=== PATIENT | female | born 1980 | race African-American/Black ===

== ENCOUNTER 2017-07-30 14:40 | Emergency (ER) | payer SELFPAY ==
[~2017-07-30] VITALS: Ht 170.2 cm; Wt 62.0 kg
[2017-07-30 14:42] VITALS: BP 129/70; PULSE 87; RESP 18; TEMP 98.9; O2SAT 100
--- NOTE | 2017-07-30 14:55 | PD ---
HPI Chief Complaint: Oral / Dental Pain or Problem Time Seen by Provider: 14:50 Travel History International Travel<30 days: No Contact w/Intl Traveler<30days: No Traveled to known affect area: No History of Present Illness HPI Patient is a 36-year-old female presents emergency department for evaluation of left-sided facial swelling. Patient states she's had dental pain for over a year and her face started swelling in the past few days. Denies any fever denies difficult to swallowing. PFSH Past Medical History Medical History: Denies Significant Hx ?: Not LMP: 07/07/17 Past Surgical History Surgical History: No Previous Surgery Social History Alcohol Use: No Tobacco Use: No Substance Use: No Allergies-Medications (Allergen,Severity, Reaction): Coded Allergies: No Known Allergies (Unverified , 07/30/17) Review of Systems Except as stated in HPI: all other systems reviewed are Neg Physical Exam Narrative GENERAL: Well-nourished, well-developed patient. SKIN: Focused skin assessment warm/dry. HEAD: Normocephalic. EYES: No scleral icterus. No injection or drainage. ENT: Patient has no obvious facial swelling that I can see she states of face is swollen over the left maxilla. No erythema, nontender. Dental exam shows a deep carry to the left second molar on the maxillary side. No obvious abscess seen. NECK: Supple, trachea midline. No JVD or lymphadenopathy. CARDIOVASCULAR: Regular rate and rhythm without murmurs, gallops, or rubs. RESPIRATORY: Breath sounds equal bilaterally. No accessory muscle use. GASTROINTESTINAL: Abdomen soft, non-tender, nondistended. MUSCULOSKELETAL: No cyanosis, or edema. BACK: Nontender without obvious deformity. No CVA tenderness. Data Data Last Documented VS Vital Signs Date Time Temp Pulse Resp B/P (MAP) Pulse Ox O2 Delivery O2 Flow Rate FiO2 07/30/17 14:52 18 07/30/17 14:42 98.9 87 129/70 (89) 100 Room Air Orders Orders Penicillin G Benzathine Inj (Bicillin L- (07/30/17 15:00) Penicillin G Benzathine Inj (Bicillin L- (07/30/17 15:15) MDM Medical Decision Making Medical Screen Exam Complete: Yes Emergency Medical Condition: Yes Differential Diagnosis Dental abscess which would be early, facial swelling, dental pain, dental caries. Narrative Course Patient roomed emergency department, offered pain medicine emergency department and declined. She is really here for facial swelling. We'll treat with Bicillin, discussed need follow-up with a dentist and she's been taking ibuprofen at home with good relief. Diagnosis Primary Impression: Dental caries Additional Impression: Facial swelling Disposition: 01 DISCHARGE HOME Condition: Stable Krystian Joseph MD Jul 30, 2017 14:54
[2017-07-30] MEDS ORDERED: PENICILLIN G BENZATHINE 1,200,000 UNITS/2 ML SYRINGE IM ONE (15:00)
[2017-07-30] MEDS ORDERED: PENICILLIN G BENZATHINE 2,400,000 UNITS/4 ML SYRINGE IM ONE (15:15)
== END 2017-07-30 16:08 | disposition home or self-care (01) ==
LOC: NEPE 14:40
DX: K02.9 Dental caries, unspecified (principal); R22.0 Localized swelling, mass and lump, head
CPT/HCPCS: 96372; 99284; J0561